=== PATIENT | male | born 1965 | race Caucasian/White ===

== ENCOUNTER 2021-06-29 13:01 | Inpatient (IN) | payer BC ==
--- NOTE | 2021-06-29 13:06 | ERPHSYRPT ---
- History of Present Illness Time Seen by Provider: 06/29/21 13:05 Historian: patient Physician History: This is a 56-year-old gentleman who has a history of hypothyroidism, type 2 diabetes and elevated cholesterol who is working for [employer] on a contractual basis. He lives in [place]. He is staying at a local hotel while he is working. For the last 8 days, patient has had myalgias and arthralgias as well as nausea and diarrhea intermittently. In the last few days he has had worsening myalgias and arthralgias and an associated cough with shortness of breath. The diarrhea is persistent. Patient has not received a COVID-19 vaccination. Patient also states that he has not been exposed, knowingly, to anyone with viral illness. Patient denies chest pain. Timing/Duration: day(s) (8), worse Activities at Onset: none Quality: other (No significant abdominal pain) Abdominal Pain Onset Location: other (No significant abdominal pain) Pain Radiation: no radiation Severity of Pain-Max: none Severity of Pain-Current: none Associated Symptoms: diarrhea, loss of appetite, nausea, shortness of breath, weakness, other (Cough), No chest pain, No fever/chills Previous symptoms: no prior history Allergies/Adverse Reactions: celecoxib [From Celebrex] Allergy (Verified 06/29/21 13:17) Home Medications: Atorvastatin Calcium [Lipitor] 1 ea DAILY 06/29/21 [History] Levothyroxine Sodium [Synthroid] 1 ea DAILY 06/29/21 [History] Metformin HCl 500 mg [Glucophage 500 MG] 1 ea DAILY 06/29/21 [History] [place]-3S/Dha/Epa/Fish Oil [Fish Oil [place]-3 Softgel] 1 ea DAILY 06/29/21 [History] Vit D3-Vit K/Berberine/Hops [Ostera Tablet] 1 ea DAILY 06/29/21 [History] Zinc 1 ea DAILY 06/29/21 [History] Travel Risk - International Travel Have you traveled outside of the country in past 3 weeks: No - Coronavirus Screening Are you exhibiting any of the following symptoms?: Yes Symptoms: Cough: New Onset, Shortness of Breath, Vomiting/Diarrhea, Headaches/Body Aches/Fatigue Close contact with a COVID-19 positive Pt in past 14-21 Days: No - Vaccine Status Have you recieved a Covid-19 vaccination: No - Review of Systems Constitutional: Weakness Eyes: No Symptoms Ears, Nose, & Throat: Throat Pain Respiratory: Cough, Dyspnea Cardiac: No Symptoms Abdominal/Gastrointestinal: Nausea, Diarrhea, No Abdominal Pain, No Vomiting Genitourinary Symptoms: No Symptoms Musculoskeletal: No Symptoms Skin: No Symptoms Neurological: No Symptoms Psychological: No Symptoms Endocrine: No Symptoms Hematologic/Lymphatic: No Symptoms Immunological/Allergic: No Symptoms All Other Systems: Reviewed and Negative - Past Medical History Pertinent Past Medical History: Yes - Past Surgical History Past Surgical History: Yes - Nursing Vital Signs Nursing Vital Signs: Initial Vital Signs Temperature 97.0 F 06/29/21 13:11 Pulse Rate 76 06/29/21 13:11 Respiratory Rate 18 06/29/21 13:11 Blood Pressure 120/75 06/29/21 13:11 O2 Sat by Pulse Oximetry 96 06/29/21 13:11 Pain Scale Pain Intensity 4 - Physical Exam General Appearance: no apparent distress, alert, anxiety Eye Exam: PERRL/EOMI, eyes nml inspection Ears, Nose, Throat Exam: pharynx normal, dry mucous membranes Neck Exam: normal inspection, non-tender, supple, full range of motion Respiratory Exam: normal breath sounds, lungs clear, airway intact, No chest tenderness, No respiratory distress Cardiovascular Exam: regular rate/rhythm, normal heart sounds, normal peripheral pulses Gastrointestinal/Abdomen Exam: soft, normal bowel sounds, No tenderness Rectal Exam: not done Back Exam: normal inspection, normal range of motion, No CVA tenderness, No vertebral tenderness Extremity Exam: normal inspection, normal range of motion, pelvis stable Neurologic Exam: alert, oriented x 3, cooperative, 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 There is no comparison EKG available.) Ordered Tests: Active Orders 24 hr Category Date Time Status Network Solutions Architect STAT Care 06/29/21 13:36 Active EKG-ER Only STAT Care 06/29/21 13:34 Active IV Insertion STAT Care 06/29/21 13:34 Active Isolation, Initiate & Maintain STAT Care 06/29/21 13:38 Active CHEST 1 VIEW (PORTABLE) Stat Exams 06/29/21 17:29 Taken AMYLASE Stat Lab 06/29/21 14:05 Completed BLOOD CULTURE Stat Lab 06/29/21 14:05 Received CBC W DIFF Stat Lab 06/29/21 14:05 Completed CMP Stat Lab 06/29/21 14:05 Completed D-DIMER QUANTITATIVE Stat Lab 06/29/21 14:05 Completed Ferritin Stat Lab 06/29/21 14:05 Completed LDH-LACTATE DEHYDROGENASE Stat Lab 06/29/21 14:35 Completed LIPASE Stat Lab 06/29/21 14:05 Completed Lactic Acid Stat Lab 06/29/21 13:45 Completed Lactic Acid Stat Lab 06/29/21 15:51 Received Hill Screen Stat Lab 06/29/21 14:35 Completed TROPONIN Q3H Lab 06/29/21 14:05 Completed TROPONIN Q3H Lab 06/29/21 16:22 Completed TROPONIN Q3H Lab 06/29/21 19:45 Ordered TROPONIN Q3H Lab 06/29/21 22:45 Ordered TROPONIN Q3H Lab 06/30/21 01:45 Ordered UA W/RFX UR CULTURE Stat Lab 06/29/21 17:01 Completed Medication Summary Discontinued Medications Generic Name Dose Route Start Last Admin Trade Name Freq PRN Reason Stop Dose Admin Methylprednisolone Sodium 0 mg 06/29/21 13:50 06/29/21 14:08 Succinate 125 mg/ Sterile IV 06/29/21 13:51 125 mg Water 2 ml STAT ONE Administration Sodium Chloride 1,000 mls @ 999 mls/hr 06/29/21 13:34 06/29/21 17:22 Sodium Chloride 0.9% 1000 Ml IV 06/29/21 14:34 Infused .Q1H1M STA Infusion Sodium Chloride Confirm 06/29/21 13:57 Sodium Chloride 0.9% 1000 Ml Administered 06/29/21 13:58 Dose 1,000 mls @ ud .ROUTE .STK-MED ONE Sodium Chloride 1,000 mls @ 999 mls/hr 06/29/21 15:41 06/29/21 17:23 Sodium Chloride 0.9% 1000 Ml IV 06/29/21 16:41 Infused .Q1H1M STA Infusion Sodium Chloride Confirm 06/29/21 15:44 Sodium Chloride 0.9% 1000 Ml Administered 06/29/21 15:45 Dose 1,000 mls @ ud .ROUTE .STK-MED ONE Methylprednisolone Sodium Succinate Confirm 06/29/21 13:57 Methylprednis Sod Succ 125 Mg/2 Ml Vial Administered 06/29/21 13:58 Dose 125 mg .ROUTE .STK-MED ONE Ondansetron HCl 4 mg 06/29/21 13:34 06/29/21 14:02 Ondansetron Hcl 4 Mg/2 Ml Vial IV 06/29/21 13:35 4 mg STAT ONE Administration Ondansetron HCl Confirm 06/29/21 13:57 Ondansetron Hcl 4 Mg/2 Ml Vial Administered 06/29/21 13:58 Dose 4 mg .ROUTE .STK-MED ONE Pantoprazole Sodium 40 mg 06/29/21 13:34 06/29/21 14:05 Pantoprazole 40 Mg Vial IV 06/29/21 13:35 40 mg STAT ONE Administration Pantoprazole Sodium Confirm 06/29/21 13:57 Pantoprazole 40 Mg Vial Administered 06/29/21 13:58 Dose 40 mg IV .STK-MED ONE Sterile Water Confirm 06/29/21 13:57 Water For Injection,Sterile 10 Ml Vial Administered 06/29/21 13:58 Dose 10 ml IJ .STK-MED ONE Lab/Rad Data: Laboratory Result Diagrams 06/29/21 14:05 06/29/21 14:05 Laboratory Results 06/29/21 06/29/21 06/29/21 Range/Units 17:01 16:22 14:40 WBC (4.0-10.5) K/mm3 RBC (4.1-5.6) M/mm3 Hgb (12.5-18.0) gm/dl Hct (42-50) % MCV (78-100) fl MCH (26-32) pg MCHC (32-36) g/dl RDW (11.5-14.0) % Plt Count (150-450) K/mm3 MPV (7.5-11.0) fl Gran % (36.0-66.0) % Eos # (Auto) (0-0.5) Absolute Lymphs (auto) (1.0-4.6) Absolute Monos (auto) (0.0-1.3) Lymphocytes % (24.0-44.0) % Monocytes % (0.0-12.0) % Eosinophils % (0.00-5.0) % Basophils % (0.0-0.4) % Absolute Granulocytes (1.4-6.9) Basophils # (0-0.4) D-Dimer (215-500) ng/mL Sodium (137-145) mmol/L Potassium (3.5-5.1) mmol/L Chloride (98-107) mmol/L Carbon Dioxide (22-30) mmol/L Anion Gap (5-15) MEQ/L BUN (9-20) mg/dL Creatinine (0.66-1.25) mg/dL Estimated GFR ML/MIN Glucose (74-106) mg/dL Lactic Acid (0.4-2.0) Calcium (8.4-10.2) mg/dL Ferritin (17.9-464) ng/mL Total Bilirubin (0.2-1.3) mg/dL AST (17-59) U/L ALT (0-50) U/L Alkaline Phosphatase (38-126) U/L Lactate Dehydrogenase (120-246) U/L Troponin I < 0.012 (0.000-0.034) ng/mL Serum Total Protein (6.3-8.2) g/dL Albumin (3.5-5.0) g/dL Amylase (30-110) U/L Lipase (23-300) U/L Urine Color YELLOW (YELLOW) Urine Appearance CLEAR (CLEAR) Urine pH 6.0 (5-6) Ur Specific [place] 1.014 (1.005-1.025) Urine Protein NEGATIVE (Negative) Urine Ketones TRACE (NEGATIVE) Urine Blood NEGATIVE (0-5) [place]/ul Urine Nitrite NEGATIVE (NEGATIVE) Urine Bilirubin NEGATIVE (NEGATIVE) Urine Urobilinogen NEGATIVE (0-1) mg/dL Ur Leukocyte Esterase NEGATIVE (NEGATIVE) Urine WBC (Auto) 0-2 (0-5) /HPF Urine RBC (Auto) 0-2 (0-2) /HPF U Epithel Cells (Auto) NONE (FEW) /HPF Urine Bacteria (Auto) RARE (NEGATIVE) /HPF Urine Mucus (Auto) SLIGHT (NEGATIVE) /HPF Urine Culture Reflexed NO (NO) Urine Glucose 50 (NEGATIVE) mg/dL Monoscreen (Negative) Influenza Type A Ag NEGATIVE (NEGATIVE) Influenza Type B Ag NEGATIVE (NEGATIVE) RSV (PCR) NEGATIVE (Negative) SARS-CoV-2 (PCR) POSITIVE A (NEGATIVE) Group A Strep Antibody (NEGATIVE) 06/29/21 06/29/21 06/29/21 Range/Units 14:35 14:35 14:05 WBC (4.0-10.5) K/mm3 RBC (4.1-5.6) M/mm3 Hgb (12.5-18.0) gm/dl Hct (42-50) % MCV (78-100) fl MCH (26-32) pg MCHC (32-36) g/dl RDW (11.5-14.0) % Plt Count (150-450) K/mm3 MPV (7.5-11.0) fl Gran % (36.0-66.0) % Eos # (Auto) (0-0.5) Absolute Lymphs (auto) (1.0-4.6) Absolute Monos (auto) (0.0-1.3) Lymphocytes % (24.0-44.0) % Monocytes % (0.0-12.0) % Eosinophils % (0.00-5.0) % Basophils % (0.0-0.4) % Absolute Granulocytes (1.4-6.9) Basophils # (0-0.4) D-Dimer (215-500) ng/mL Sodium (137-145) mmol/L Potassium (3.5-5.1) mmol/L Chloride (98-107) mmol/L Carbon Dioxide (22-30) mmol/L Anion Gap (5-15) MEQ/L BUN (9-20) mg/dL Creatinine (0.66-1.25) mg/dL Estimated GFR ML/MIN Glucose (74-106) mg/dL Lactic Acid (0.4-2.0) Calcium (8.4-10.2) mg/dL Ferritin 828 H (17.9-464) ng/mL Total Bilirubin (0.2-1.3) mg/dL AST (17-59) U/L ALT (0-50) U/L Alkaline Phosphatase (38-126) U/L Lactate Dehydrogenase 196 (120-246) U/L Troponin I (0.000-0.034) ng/mL Serum Total Protein (6.3-8.2) g/dL Albumin (3.5-5.0) g/dL Amylase (30-110) U/L Lipase (23-300) U/L Urine Color (YELLOW) Urine Appearance (CLEAR) Urine pH (5-6) Ur Specific [place] (1.005-1.025) Urine Protein (Negative) Urine Ketones (NEGATIVE) Urine Blood (0-5) [place]/ul Urine Nitrite (NEGATIVE) Urine Bilirubin (NEGATIVE) Urine Urobilinogen (0-1) mg/dL Ur Leukocyte Esterase (NEGATIVE) Urine WBC (Auto) (0-5) /HPF Urine RBC (Auto) (0-2) /HPF U Epithel Cells (Auto) (FEW) /HPF Urine Bacteria (Auto) (NEGATIVE) /HPF Urine Mucus (Auto) (NEGATIVE) /HPF Urine Culture Reflexed (NO) Urine Glucose (NEGATIVE) mg/dL Monoscreen NEGATIVE (Negative) Influenza Type A Ag (NEGATIVE) Influenza Type B Ag (NEGATIVE) RSV (PCR) (Negative) SARS-CoV-2 (PCR) (NEGATIVE) Group A Strep Antibody (NEGATIVE) 06/29/21 06/29/21 06/29/21 Range/Units 14:05 14:05 14:05 WBC (4.0-10.5) K/mm3 RBC (4.1-5.6) M/mm3 Hgb (12.5-18.0) gm/dl Hct (42-50) % MCV (78-100) fl MCH (26-32) pg MCHC (32-36) g/dl RDW (11.5-14.0) % Plt Count (150-450) K/mm3 MPV (7.5-11.0) fl Gran % (36.0-66.0) % Eos # (Auto) (0-0.5) Absolute Lymphs (auto) (1.0-4.6) Absolute Monos (auto) (0.0-1.3) Lymphocytes % (24.0-44.0) % Monocytes % (0.0-12.0) % Eosinophils % (0.00-5.0) % Basophils % (0.0-0.4) % Absolute Granulocytes (1.4-6.9) Basophils # (0-0.4) D-Dimer < 215 L (215-500) ng/mL Sodium 135 L (137-145) mmol/L Potassium 3.7 (3.5-5.1) mmol/L Chloride 96 L (98-107) mmol/L Carbon Dioxide 27 (22-30) mmol/L Anion Gap 15.9 H (5-15) MEQ/L BUN 12 (9-20) mg/dL Creatinine 0.74 (0.66-1.25) mg/dL Estimated GFR > 60.0 ML/MIN Glucose 188 H (74-106) mg/dL Lactic Acid (0.4-2.0) Calcium 9.1 (8.4-10.2) mg/dL Ferritin (17.9-464) ng/mL Total Bilirubin 0.70 (0.2-1.3) mg/dL AST 113 H (17-59) U/L ALT 125 H (0-50) U/L Alkaline Phosphatase 70 (38-126) U/L Lactate Dehydrogenase (120-246) U/L Troponin I < 0.012 (0.000-0.034) ng/mL Serum Total Protein 7.5 (6.3-8.2) g/dL Albumin 4.5 (3.5-5.0) g/dL Amylase 61 (30-110) U/L Lipase 137 (23-300) U/L Urine Color (YELLOW) Urine Appearance (CLEAR) Urine pH (5-6) Ur Specific [place] (1.005-1.025) Urine Protein (Negative) Urine Ketones (NEGATIVE) Urine Blood (0-5) [place]/ul Urine Nitrite (NEGATIVE) Urine Bilirubin (NEGATIVE) Urine Urobilinogen (0-1) mg/dL Ur Leukocyte Esterase (NEGATIVE) Urine WBC (Auto) (0-5) /HPF Urine RBC (Auto) (0-2) /HPF U Epithel Cells (Auto) (FEW) /HPF Urine Bacteria (Auto) (NEGATIVE) /HPF Urine Mucus (Auto) (NEGATIVE) /HPF Urine Culture Reflexed (NO) Urine Glucose (NEGATIVE) mg/dL Monoscreen (Negative) Influenza Type A Ag (NEGATIVE) Influenza Type B Ag (NEGATIVE) RSV (PCR) (Negative) SARS-CoV-2 (PCR) (NEGATIVE) Group A Strep Antibody (NEGATIVE) 06/29/21 06/29/21 06/29/21 Range/Units 14:05 13:45 13:35 WBC 4.8 (4.0-10.5) K/mm3 RBC 4.92 (4.1-5.6) M/mm3 Hgb 14.4 (12.5-18.0) gm/dl Hct 43.4 (42-50) % MCV 88.2 (78-100) fl MCH 29.3 (26-32) pg MCHC 33.2 (32-36) g/dl RDW 13.1 (11.5-14.0) % Plt Count 144 L (150-450) K/mm3 MPV 11.3 H (7.5-11.0) fl Gran % 52.4 (36.0-66.0) % Eos # (Auto) 0 (0-0.5) Absolute Lymphs (auto) 1.53 (1.0-4.6) Absolute Monos (auto) 0.73 (0.0-1.3) Lymphocytes % 32.1 (24.0-44.0) % Monocytes % 15.3 H (0.0-12.0) % Eosinophils % 0.0 (0.00-5.0) % Basophils % 0.2 (0.0-0.4) % Absolute Granulocytes 2.50 (1.4-6.9) Basophils # 0.01 (0-0.4) D-Dimer (215-500) ng/mL Sodium (137-145) mmol/L Potassium (3.5-5.1) mmol/L Chloride (98-107) mmol/L Carbon Dioxide (22-30) mmol/L Anion Gap (5-15) MEQ/L BUN (9-20) mg/dL Creatinine (0.66-1.25) mg/dL Estimated GFR ML/MIN Glucose (74-106) mg/dL Lactic Acid 2.3 H (0.4-2.0) Calcium (8.4-10.2) mg/dL Ferritin (17.9-464) ng/mL Total Bilirubin (0.2-1.3) mg/dL AST (17-59) U/L ALT (0-50) U/L Alkaline Phosphatase (38-126) U/L Lactate Dehydrogenase (120-246) U/L Troponin I (0.000-0.034) ng/mL Serum Total Protein (6.3-8.2) g/dL Albumin (3.5-5.0) g/dL Amylase (30-110) U/L Lipase (23-300) U/L Urine Color (YELLOW) Urine Appearance (CLEAR) Urine pH (5-6) Ur Specific [place] (1.005-1.025) Urine Protein (Negative) Urine Ketones (NEGATIVE) Urine Blood (0-5) [place]/ul Urine Nitrite (NEGATIVE) Urine Bilirubin (NEGATIVE) Urine Urobilinogen (0-1) mg/dL Ur Leukocyte Esterase (NEGATIVE) Urine WBC (Auto) (0-5) /HPF Urine RBC (Auto) (0-2) /HPF U Epithel Cells (Auto) (FEW) /HPF Urine Bacteria (Auto) (NEGATIVE) /HPF Urine Mucus (Auto) (NEGATIVE) /HPF Urine Culture Reflexed (NO) Urine Glucose (NEGATIVE) mg/dL Monoscreen (Negative) Influenza Type A Ag (NEGATIVE) Influenza Type B Ag (NEGATIVE) RSV (PCR) (Negative) SARS-CoV-2 (PCR) (NEGATIVE) Group A Strep Antibody NOT DETECTED (NEGATIVE) - Progress Progress: improved, re-examined Progress Note: 06/29/21 18:16 X-ray shows bibasilar infiltrate consistent with COVID-19 pneumonia 06/29/21 18:17 Medical decision making: The original plan was to have this patient discharged to home. However, we noticed that periodically his room air oxygen saturations would drop from 95 down to 91%. Patient states he still was not feeling much better. We opted to test him by walking him in the room and his room air oxygen levels would drop to 88 to 89%. 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 This patient would be best served by being admitted in the hospital and started on remdesivir and continued steroid use. I spoke with Dr. Blank. He agrees. Patient will be placed on the Covid unit Discussed with Dr.: Other (Dr. Blank) Counseled pt/family regarding: lab results, diagnosis, need for follow-up - Departure Departure Disposition: In-patient Admission Clinical Impression: COVID-19 virus infection Condition: Stable Critical Care Time: No Referrals: DOCTOR,NO FAMILY [Primary Care Provider] - Follow up/PCP as directed Additional Instructions: Drink plenty of clear liquids. Take your medications as prescribed. Return to the emergency department symptoms worsen. Prescriptions: Ondansetron ODT 4 MG [Zofran Odt 4 mg] 4 mg PO Q6H PRN PRN #10 tablet PRN Reason: Vomiting Hydrocodone/Acetaminophen [Hydrocodone-Acetamn 7.5-325/15] 10 ml PO Q8H PRN PRN #120 ml MDD 30 ml PRN Reason: Cough Prednisone 10 mg [Deltasone 10 mg] 10 mg PO TID #12 tablet Albuterol 8 gm Mdi Hfa [Ventolin Hfa MDI] 8 gm IH Q4H #1 gm
[2021-06-29] MEDS ORDERED: Zofran 4 MG/2 ML VIAL IV ONE (13:34)
[2021-06-29] MEDS ORDERED: Sodium Chloride 0.9% 1000 ML 1,000 ML IV STA ×2 (13:34→15:41)
[2021-06-29] MEDS ORDERED: PROTONIX 40 MG IV IV ONE ×2 (13:34→13:57)
[2021-06-29] MEDS ORDERED: solu-MEDROL 125 MG, Sterile H2O 10 ml 2 ML IV ONE ×2 (13:50)
[2021-06-29] MEDS ORDERED: solu-MEDROL ONE (13:57)
[2021-06-29] MEDS ORDERED: Sterile H2O 10 ml IJ ONE (13:57)
[2021-06-29] MEDS ORDERED: Zofran 4 MG/2 ML VIAL ONE (13:57)
[2021-06-29] MEDS ORDERED: Sodium Chloride 0.9% 1000 ML 1,000 ML ONE ×2 (13:57→15:44)
[2021-06-29 14:46] LABS: Basophil (Absolute #) 0.01 (0-0.4); Eosinophil (Absolute #) 0 (0-0.5); Hematocrit 43.4 % (42-50); Hemoglobin 14.4 gm/dl (12.5-18.0); Lymphocyte (Absolute #) 1.53 (1.0-4.6); Lymphocytes % 32.1 % (24.0-44.0); Mean Cell Volume 88.2 fl (78-100); Mean Corpuscular Hemoglobin 29.3 pg (26-32); Mean Corpuscular Hgb Concent. 33.2 g/dl (32-36); Mean Platelet Volume 11.3 fl (7.5-11.0); Monocyte (Absolute #) 0.73 (0.0-1.3); Monocytes % 15.3 % (0.0-12.0); Neutrophil % 52.4 % (36.0-66.0); Platelet Count 144 K/mm3 (150-450); Red Blood Count 4.92 M/mm3 (4.1-5.6); Red Cell Distribution Width 13.1 % (11.5-14.0); White Blood Count 4.8 K/mm3 (4.0-10.5)
[2021-06-29 14:56] LABS: ALBUMIN 4.5 g/dL (3.5-5.0); ALKALINE PHOSPHATASE 70 U/L (38-126); AMYLASE 61 U/L (30-110); ANION GAP 15.9 MEQ/L (5-15); BLOOD UREA NITROGEN 12 mg/dL (9-20); CHLORIDE 96 mmol/L (98-107); Calcium 9.1 mg/dL (8.4-10.2); Carbon Dioxide 27 mmol/L (22-30); Creatinine 1 0.74 mg/dL (0.66-1.25); EST GLOMERULAR FILTRATION RATE > 60.0 ML/MIN; Glucose 188 mg/dL (74-106); LIPASE 137 U/L (23-300); Potassium 3.7 mmol/L (3.5-5.1); SGOT/AST 113 U/L (17-59); SGPT/ALT 125 U/L (0-50); SODIUM 135 mmol/L (137-145); Total Protein 7.5 g/dL (6.3-8.2)
[2021-06-29 15:22] LABS: INFLUENZA A NEGATIVE (NEGATIVE); INFLUENZA B NEGATIVE (NEGATIVE); RESPIRATORY SYNCTIAL VIRUS NEGATIVE (Negative)
[2021-06-29 15:25] LABS: SARS-CoV-2 Xpert Express POSITIVE (NEGATIVE)
[2021-06-29 17:22] LABS: Appearance CLEAR (CLEAR); Bacteria RARE /HPF (NEGATIVE); Bilirubin NEGATIVE (NEGATIVE); Blood NEGATIVE Ery/ul (0-5); Glucose 50 mg/dL (NEGATIVE); Ketones TRACE (NEGATIVE); Leukocyte Esterase NEGATIVE (NEGATIVE); Mucus SLIGHT /HPF (NEGATIVE); Nitrite NEGATIVE (NEGATIVE); Protein,Urine Dip NEGATIVE (Negative); RBC 0-2 /HPF (0-2); Specific Gravity 1.014 (1.005-1.025); Urobilinogen NEGATIVE mg/dL (0-1); WBC 0-2 /HPF (0-5)
--- NOTE | 2021-06-29 19:11 | XRAY ---
Indication: Cough. Positive Covid 19. Comparison: None Portable apical lordotic chest demonstrates mild right hemidiaphragm elevation with minimal adjacent atelectasis. Remaining heart, lungs, and bony thorax unremarkable.
[2021-06-29] MEDS ORDERED: HUMALOG SQ PRN (20:58)
[2021-06-29] MEDS ORDERED: REMDESIVIR 200 MG in Sodium Chloride 0.9% 250 ML 250 ML IV ONE (20:58)
[2021-06-29] MEDS ORDERED: Ativan 2 MG/1 ML VIAL IV PRN (20:58)
[2021-06-29] MEDS ORDERED: TYLENOL EXTRA STRENGTH 500 MG PO PRN (20:58)
[2021-06-29] MEDS ORDERED: Sodium Chloride 0.9% 1000 ML 1,000 ML IV SCH (21:00)
[2021-06-29] MEDS: Ativan 1 MG PO PRN (21:19)
[2021-06-29] MEDS: Zofran 4 MG/2 ML VIAL IV PRN (21:19)
[2021-06-29] MEDS ORDERED: REMDESIVIR IV ONE (21:21)
[2021-06-29] MEDS ORDERED: Sodium Chloride 0.9% 250 ML 250 ML IV ONE (21:21)
[2021-06-29] MEDS: HYDROCODONE-CHLORPHEN ER SUSP PO PRN (21:47)
[2021-06-30] MEDS: NORCO 5/325 MG PO PRN ×2 (03:00→21:00)
[2021-06-30 06:43] LABS: Hematocrit 39.6 % (42-50); Hemoglobin 13.2 gm/dl (12.5-18.0); Mean Cell Volume 88.4 fl (78-100); Mean Corpuscular Hemoglobin 29.5 pg (26-32); Mean Corpuscular Hgb Concent. 33.3 g/dl (32-36); Platelet Count 141 K/mm3 (150-450); Red Blood Count 4.48 M/mm3 (4.1-5.6); White Blood Count 5.3 K/mm3 (4.0-10.5)
[2021-06-30 07:12] LABS: ALBUMIN 3.9 g/dL (3.5-5.0); ALKALINE PHOSPHATASE 59 U/L (38-126); ANION GAP 13.1 MEQ/L (5-15); BLOOD UREA NITROGEN 10 mg/dL (9-20); CHLORIDE 99 mmol/L (98-107); Calcium 8.4 mg/dL (8.4-10.2); Carbon Dioxide 26 mmol/L (22-30); Creatinine 1 0.59 mg/dL (0.66-1.25); EST GLOMERULAR FILTRATION RATE > 60.0 ML/MIN; Glucose 242 mg/dL (74-106); Potassium 3.9 mmol/L (3.5-5.1); SGOT/AST 62 U/L (17-59); SGPT/ALT 98 U/L (0-50); SODIUM 134 mmol/L (137-145); Total Protein 6.7 g/dL (6.3-8.2)
[2021-06-30] MEDS ORDERED: HUMALOG SQ PRN (07:45)
[2021-06-30] MEDS: Glucophage 500 MG PO SCH (07:58)
[2021-06-30] MEDS: Zocor 10MG PO SCH (09:10)
[2021-06-30] MEDS: ENOXAPARIN SODIUM SQ SCH (09:10)
[2021-06-30] MEDS: DECADRON 10MG INJ. IV SCH (09:10)
[2021-06-30] MEDS: OLUMIANT PO SCH (09:10)
[2021-06-30] MEDS: HYDROCODONE-CHLORPHEN ER SUSP PO PRN ×2 (09:11→21:01)
[2021-06-30] MEDS: SYNTHROID 75 MCG PO SCH (09:11)
[2021-06-30] MEDS ORDERED: NON-FORMULARY ITEM (Atorvastatin Calcium 10 MG Tablet) PO SCH (10:00)
[2021-06-30] MEDS: Zofran 4 MG/2 ML VIAL IV PRN (19:29)
[2021-06-30] MEDS: REMDESIVIR 100 MG in Sodium Chloride 0.9% 100 ML BAG 100 ML IV SCH (21:00)
[2021-07-01] MEDS: Ativan 1 MG PO PRN ×2 (01:30→21:27)
[2021-07-01 05:41] LABS: Hematocrit 39.9 % (42-50); Hemoglobin 13.3 gm/dl (12.5-18.0); Mean Cell Volume 88.7 fl (78-100); Mean Corpuscular Hemoglobin 29.6 pg (26-32); Mean Corpuscular Hgb Concent. 33.3 g/dl (32-36); Mean Platelet Volume 11.1 fl (7.5-11.0); Platelet Count 155 K/mm3 (150-450); White Blood Count 4.6 K/mm3 (4.0-10.5)
[2021-07-01 06:07] LABS: ALBUMIN 3.9 g/dL (3.5-5.0); ALKALINE PHOSPHATASE 62 U/L (38-126); ANION GAP 14.1 MEQ/L (5-15); BLOOD UREA NITROGEN 14 mg/dL (9-20); CHLORIDE 96 mmol/L (98-107); Calcium 8.6 mg/dL (8.4-10.2); Carbon Dioxide 27 mmol/L (22-30); Creatinine 1 0.59 mg/dL (0.66-1.25); EST GLOMERULAR FILTRATION RATE > 60.0 ML/MIN; Glucose 270 mg/dL (74-106); Potassium 3.9 mmol/L (3.5-5.1); SGOT/AST 44 U/L (17-59); SGPT/ALT 77 U/L (0-50); SODIUM 133 mmol/L (137-145); Total Protein 6.7 g/dL (6.3-8.2)
[2021-07-01] MEDS: Glucophage 500 MG PO SCH ×2 (08:05→16:55)
[2021-07-01] MEDS: DECADRON 10MG INJ. IV SCH (08:40)
[2021-07-01] MEDS: ENOXAPARIN SODIUM SQ SCH (08:40)
[2021-07-01] MEDS: OLUMIANT PO SCH (08:41)
[2021-07-01] MEDS: NORCO 5/325 MG PO PRN ×2 (08:41→21:26)
[2021-07-01] MEDS: Zocor 10MG PO SCH (08:41)
[2021-07-01] MEDS: SYNTHROID 75 MCG PO SCH (08:42)
--- NOTE | 2021-07-01 12:17 | HP ---
CHIEF COMPLAINT: COVID gastroenteritis, diabetes mellitus, dehydration. HISTORY OF PRESENT ILLNESS: The patient is a 56-year-old white male who lives by himself. He is here from [place] doing a job for [employer]. He has been in bed for the last few days. Blood sugar is elevated. He is having diarrhea, weakness, nausea, cannot eat. He denies any chest pain. He does have what he states is well controlled diabetes mellitus type II on Metformin. He denies any history of coronary artery disease, arthritis. He does have some hypothyroidism, elevated cholesterol. He does not know who he got it from and just moved into a rental house in [place]. MEDICATIONS: Lipitor q.d., Synthroid q.d., Metformin 500 q.d., fish oil omega-3 soft gel 1 q.d., vitamin D q.d., zinc 1 q.d. ALLERGIES: CELECOXIB. PAST MEDICAL HISTORY: Diabetes mellitus type II, hypothyroidism. PAST SURGICAL HISTORY: Nose surgery. Left shoulder surgery. REVIEW OF SYSTEMS: CONSTITUTIONAL: HEENT: No problems hearing or seeing. CHEST: No shortness of breath. He is coughing a lot, productive cough, nonsmoker. ABDOMEN: Nauseated, epigastric pain, aching all over. EXTREMITIES: Aching all over. Knee pain which is chronic. SOCIAL HISTORY: He does not smoke, does not drink. PHYSICAL EXAMINATION: The patient is an appropriately aged, heavy, pleasant 56-year-old white male in no severe distress. HEENT: Pupils equal and reactive to light. NECK: Supple without adenopathy. CHEST: Clear. ABDOMEN: Kind of tender all over. He is moderately obese. No masses. EXTREMITIES: Color is good. Pulses are good peripherally IMPRESSION: The patient has COVID gastroenteritis with mild dehydration and severe myopathy. We admitted him for Decadron, Remdesivir, anticoagulate him, will rehydrate him and follow his blood sugars which presently 242. PROGNOSIS: Good.
[2021-07-01] MEDS ORDERED: Lomotil PO PRN (15:41)
[2021-07-01] MEDS: Zofran 4 MG/2 ML VIAL IV PRN (20:01)
[2021-07-01] MEDS: REMDESIVIR 100 MG in Sodium Chloride 0.9% 100 ML BAG 100 ML IV SCH (20:01)
[2021-07-01] MEDS: HYDROCODONE-CHLORPHEN ER SUSP PO PRN (20:01)
[2021-07-02 06:07] LABS: Hematocrit 40.2 % (42-50); Hemoglobin 13.3 gm/dl (12.5-18.0); Mean Cell Volume 88.4 fl (78-100); Mean Corpuscular Hemoglobin 29.2 pg (26-32); Mean Corpuscular Hgb Concent. 33.1 g/dl (32-36); Mean Platelet Volume 11.3 fl (7.5-11.0); Platelet Count 180 K/mm3 (150-450); Red Blood Count 4.55 M/mm3 (4.1-5.6); Red Cell Distribution Width 12.9 % (11.5-14.0); White Blood Count 5.5 K/mm3 (4.0-10.5)
[2021-07-02 06:44] LABS: ALBUMIN 3.9 g/dL (3.5-5.0); ALKALINE PHOSPHATASE 60 U/L (38-126); BLOOD UREA NITROGEN 15 mg/dL (9-20); CHLORIDE 95 mmol/L (98-107); Calcium 8.8 mg/dL (8.4-10.2); Carbon Dioxide 28 mmol/L (22-30); Creatinine 1 0.63 mg/dL (0.66-1.25); EST GLOMERULAR FILTRATION RATE > 60.0 ML/MIN; Glucose 248 mg/dL (74-106); Potassium 3.7 mmol/L (3.5-5.1); SGOT/AST 40 U/L (17-59); SGPT/ALT 70 U/L (0-50); SODIUM 135 mmol/L (137-145); Total Protein 6.7 g/dL (6.3-8.2)
[2021-07-02] MEDS: Glucophage 500 MG PO SCH (07:32)
[2021-07-02 08:05] VITALS: BP 123/72; PULSE 52; O2SAT 92
[2021-07-02] MEDS: Zocor 10MG PO SCH (10:24)
[2021-07-02] MEDS: OLUMIANT PO SCH (10:24)
[2021-07-02] MEDS: SYNTHROID 75 MCG PO SCH (10:25)
[2021-07-02] MEDS: ENOXAPARIN SODIUM SQ SCH (10:25)
[2021-07-02] MEDS: DECADRON 10MG INJ. IV SCH (10:25)
[2021-07-02] MEDS: Zofran 4 MG/2 ML VIAL IV PRN (10:50)
== END 2021-07-02 12:55 | disposition home or self-care (01) | DRG 179 ==
LOC: ED 13:01 → MED SURG 18:28
PROVIDERS: ADMIT Family Medicine; ATTEND Family Medicine
DX: U07.1 COVID-19 (principal); K52.9 Noninfective gastroenteritis and colitis, unspecified; E11.9 Type 2 diabetes mellitus without complications; E86.0 Dehydration; E03.9 Hypothyroidism, unspecified; E78.00 Pure hypercholesterolemia, unspecified; G72.9 Myopathy, unspecified; Z79.899 Other long term (current) drug therapy
CPT/HCPCS: 0241U; 36000; 36415; 71045; 80053; 81001; 82150; 82728; 82947; 83036; 83605; 83615; 83690; 84484; 85025; 85027; 85379; 86308; 87040; 87651; 93005; 93041; 94762; 96360; 96361; 96374; 96375; 99284; J0248; J1100; J1650; J2405; J2930; A9270-GY